=== PATIENT | male | born 1940 | race Caucasian/White ===

== ENCOUNTER → 2018-01-05 | Day surgery (SDC) | payer MEDICARE ==
[2018-01-04 12:38] LABS: BASOPHILS % 0.5 % (0.0-1.0); EOSINOPHILS # (AUTO) 0.3 (0.0-0.4); EOSINOPHILS % 4.4 % (0.0-6.0); HEMATOCRIT 38.7 % (38.2-49.6); HEMOGLOBIN 12.2 g/dL (14.0-18.0); LYMPHOCYTES # (AUTO) 1.7 (1.0-3.2); LYMPHOCYTES % 21.2 % (18.0-39.1); MEAN CORPUSCULAR HEMOGLOBIN 26.2 pg (28-32); MEAN CORPUSCULAR HGB CONC 31.5 g/dL (31-35); MEAN CORPUSCULAR VOLUME 83.2 fL (81-99); MONOCYTES # (AUTO) 0.7 (0.2-0.8); MONOCYTES % 8.7 % (4.4-11.3); NEUTROPHILS # (AUTO) 5.1 (2.1-6.9); NEUTROPHILS % 64.8 % (38.7-80.0); PLATELET COUNT 293 x10e3/uL (140-360); RED BLOOD COUNT 4.65 x10e6/uL (4.3-5.7); RED CELL DISTRIBUTION WIDTH 15.3 % (11.7-14.4)
[2018-01-04 13:05] LABS: ANION GAP 12.3 mmol/L (8-16); CALCIUM 9.5 mg/dL (8.4-10.2); CREATININE, SERUM 1.55 mg/dL (0.72-1.25); POTASSIUM 4.3 mmol/L (3.5-5.1)
--- NOTE | 2018-01-04 13:30 | Diagnostic Imaging Report ---
PROCEDURE:CHEST 2 VIEWS TECHNIQUE:PA and lateral chest INDICATION:Preoperative evaluation COMPARISON:None. FINDINGS: Lungs are clear and symmetrically inflated. No pleural effusions. Large cardiac silhouette with mildly prominent central vasculature. Grossly intact skeleton. CONCLUSION: Cardiomegaly with mild central vascular congestion. Dictated by: Slava Hernandez M.D. on 01/04/2018 at 13:32 Electronically approved by: Slava Hernandez M.D. on 01/04/2018 at 13:32
[~2018-01-05] MED LIST: ATORVASTATIN CA40 MG PO; BUPIVACAINE HCL 0.5% INJ 30 ML VIAL INJ ONE; CEFAZOLIN SOD 2 GM/D5W 50ML 50 ML IV ONE; CLONIDINE HCL0.2 MG PO; DEXAMETHASONE SOD PHOS INJ 4 MG/ML VIAL ONE; ESIDRIX25 MG PO; FENTANYL CITRATE/PF 100MCG/2 ML INJ ONE; GLIPIZIDE XL10 MG PO; INSULIN REGULAR, HUMAN 100 UNIT/1 ML 3ML VIAL ONE; LEVOTHYROXINE100 MCG PO; LIDOCAINE HCL 2% LOCAL INJ 5 ML SDV VIAL INJ ONE; METFORMIN HCL850 MG PO; MIDAZOLAM HCL 2 MG/2 ML VIAL ONE; NEXIUM20 MG PO; ONDANSETRON HCL INJ 2 MG/ML VIAL ONE; PIOGLITAZONE45 MG PO; POTASSIUM CHLO20 ME1 PO; PROPOFOL IV EMULSION 10 MG/ML 20 ML VIAL ONE; SEVOFLURANE INHAL SOLN 250 ML PEN BTL ONE; SODIUM BICARBO650 MG PO
--- OUTSIDE RECORDS SUMMARY | 2018-01-05 07:20 | XMS REPORT ---
Author Author [facility] Address Unknown Phone Unavailable Care Team Providers Care Instructor Of Spanish Name Role Phone ARMEN MARHS Unavailable Unavailable Problems This patient has no known problems. Allergies, Adverse Reactions, Alerts This patient has no known allergies or adverse reactions. Medications This patient has no known medications. Results Test Description Test Time Test Comments Text Results Atomic Results Result Comments CHEST 2 VIEWS [place] [address] Patient Name: MATILDE JAMA MR #: [id number] : 1940 Age/Sex: 77/M Req #: [id number] Adm Physician: Ordered by: ARMEN MARSH MD Report #: [id number] Location: OR Room/Bed: Procedure: [id number] DX/CHEST 2 VIEWS Exam Date: 01/04/18 Exam Time: 1245 REPORT STATUS: Signed PROCEDURE: CHEST 2 VIEWS TECHNIQUE: PA and lateral chest INDICATION: Preoperative evaluation COMPARISON: None. FINDINGS: Lungs are clear and symmetrically inflated. No pleural effusions. Large cardiac silhouette with mildly prominent central vasculature. Grossly intact skeleton. CONCLUSION: Cardiomegaly with mild central vascular congestion. Dictated by: Maximiliano Hernandez M.D. on 01/04/2018 at 13:32 Electronically approved by: Maximiliano Hernandez M.D. on 01/04/2018 at 13:32 Dictated By: MAXIMILIANO HERNANDEZ MD [id number] Transcribed By: LINDA on 01/04/18 133 COPY TO: ARMEN MARSH MD
--- NOTE | 2018-01-07 10:09 | Operative Report ---
DATE OF PROCEDURE: January 05, 2018 PREOPERATIVE DIAGNOSES 1. Left knee medial meniscus tear. 2. Left knee degenerative joint disease of the knee. POSTOPERATIVE DIAGNOSES 1. Left knee medial meniscus tear. 2. Left knee degenerative joint disease of the knee. OPERATIONS/PROCEDURES PERFORMED 1. The patient underwent a left knee examination under anesthesia. 2. Left knee arthroscopy. 3. Left knee partial medial meniscectomy. 4. Left knee chondroplasty of the patella, trochlea, the medial femoral condyle, medial tibial plateau, lateral femoral condyle, lateral tibial plateau. TROPHY ASSEMBLER: None. ANESTHESIA: General endotracheal intubation anesthesia. IV FLUIDS: Per the anesthesia record. BRIEF DESCRIPTION OF THE PATIENT'S OPERATIVE PROCEDURE: Mr. Veliz was taken to the operating room and placed in the supine position on the operating table. Following induction of general anesthesia, as well as endotracheal intubation, the patient's left lower extremity was examined under anesthesia. He was found to have a mild effusion of the knee joint, but an otherwise ligamentously stable knee. The patient's lower extremity was prepped and draped in the standard surgical fashion. A 2-portal technique used to provide this patient arthroscopic evaluation of the knee joint. Examination of the suprapatellar pouch, medial and lateral gutters found no evidence of loose bodies. There was, however, evidence of chondromalacia of the patellar and trochlear surfaces. A scope was advanced to the medial compartment. Examination of the medial compartment demonstrated a torn medial meniscus. There was also evidence of chondromalacia of the medial femoral condyle and medial and tibial plateau. A combination of biting forceps and motorized shaver were used to resect the torn portion of the meniscus. Chondroplasties of the medial femoral condyle and medial tibial plateau were performed at this time. Scope was then advanced into the intercondylar notch and the anterior cruciate ligament was identified and found to be intact. Scope was advanced in the lateral compartment, and chondromalacia of articulating surfaces were encountered. Chondroplasties of the lateral femoral condyle and lateral tibial plateau were performed at this time. Scope was then advanced in the suprapatellar pouch. A chondroplasty of the patella and trochlea was performed. The knee was then deflated of its sterile normal saline. Each of the portal sites were closed using 4-0 nylon suture. Portal sites as well as the knee itself were then injected with 0.5% Marcaine with epinephrine. Sterile dressings were applied. The patient was then awakened and taken to the postanesthesia care unit in stable condition. Job#: [id number] RAUDEL
== END | disposition home or self-care (01) ==
LOC: OR 07:17
PROVIDERS: ATTEND Specialist
DX: S83.222A Peripheral tear of medial meniscus, current injury, left knee, initial encounter (principal); M17.12 Unilateral primary osteoarthritis, left knee; M22.42 Chondromalacia patellae, left knee; E11.22 Type 2 diabetes mellitus with diabetic chronic kidney disease; I12.9 Hypertensive chronic kidney disease with stage 1 through stage 4 chronic kidney disease, or unspecified chronic kidney disease; N18.9 Chronic kidney disease, unspecified; X58.XXXA Exposure to other specified factors, initial encounter; Z01.810 Encounter for preprocedural cardiovascular examination; Z01.812 Encounter for preprocedural laboratory examination; Z01.818 Encounter for other preprocedural examination; Z79.84 Long term (current) use of oral hypoglycemic drugs; Z68.42 Body mass index [BMI] 45.0-49.9, adult
CPT/HCPCS: 29881; 36415 ×2; 71046; 80048; 82948; 85025; 93005; J1100; J2001; J2250; J2405

== ENCOUNTER → 2018-01-27 | Outpatient (RCR) | payer MEDICARE ==
[~2018-01-27] MED LIST changes: -BUPIVACAINE HCL 0.5% INJ 30 ML VIAL INJ ONE; -CEFAZOLIN SOD 2 GM/D5W 50ML 50 ML IV ONE; -DEXAMETHASONE SOD PHOS INJ 4 MG/ML VIAL ONE; -FENTANYL CITRATE/PF 100MCG/2 ML INJ ONE; -INSULIN REGULAR, HUMAN 100 UNIT/1 ML 3ML VIAL ONE; -LIDOCAINE HCL 2% LOCAL INJ 5 ML SDV VIAL INJ ONE; -MIDAZOLAM HCL 2 MG/2 ML VIAL ONE; -ONDANSETRON HCL INJ 2 MG/ML VIAL ONE; -PROPOFOL IV EMULSION 10 MG/ML 20 ML VIAL ONE; -SEVOFLURANE INHAL SOLN 250 ML PEN BTL ONE
== END ==
LOC: PT 01-20 11:53
PROVIDERS: ATTEND Specialist
DX: M17.12 Unilateral primary osteoarthritis, left knee (principal); M25.562 Pain in left knee; M25.662 Stiffness of left knee, not elsewhere classified; R26.2 Difficulty in walking, not elsewhere classified; M62.81 Muscle weakness (generalized)
CPT/HCPCS: 97010; 97110 ×3; 97163; G8978; G8979

== ENCOUNTER 2018-02-14 11:00 | Outpatient (RCR) | payer MEDICARE | END 2018-02-26 | LOC: PT 11:00 | PROVIDERS: ATTEND Specialist | DX: M17.12 Unilateral primary osteoarthritis, left knee (principal); M25.562 Pain in left knee; M25.662 Stiffness of left knee, not elsewhere classified; M62.81 Muscle weakness (generalized); R26.2 Difficulty in walking, not elsewhere classified | CPT/HCPCS: 97010; 97110 ×6; 97139; G8978; G8979 ==

== ENCOUNTER → 2018-03-31 | Day surgery (SDC) | payer MEDICARE ==
[~2018-03-31] MED LIST changes: +CEFOXITIN SOD 1 GM VIAL ONE; +DEXAMETHASONE SOD PHOS INJ 4 MG/ML VIAL ONE; +FENTANYL CITRATE/PF 100MCG/2 ML INJ ONE; +INSULIN REGULAR, HUMAN 100 UNIT/1 ML 3ML VIAL ONE; +LIDOCAINE HCL 2% LOCAL INJ 5 ML SDV VIAL INJ ONE; +MIDAZOLAM HCL 2 MG/2 ML VIAL ONE; +ONDANSETRON HCL INJ 2 MG/ML VIAL ONE; +PROPOFOL IV EMULSION 10 MG/ML 20 ML VIAL ONE; +ROCURONIUM BROMIDE 10 MG/ML 5ML VIAL ONE; +SEVOFLURANE INHAL SOLN 250 ML PEN BTL ONE; +SUCCINYLCHOLINE 200 MG/10 ML SYR ONE
[2018-03-31 12:17] LABS: BASOPHILS # (AUTO) 0.1 (0.0-0.1); BASOPHILS % 0.6 % (0.0-1.0); EOSINOPHILS # (AUTO) 0.3 (0.0-0.4); EOSINOPHILS % 3.4 % (0.0-6.0); HEMATOCRIT 42.3 % (38.2-49.6); HEMOGLOBIN 13.5 g/dL (14.0-18.0); LYMPHOCYTES # (AUTO) 2.1 (1.0-3.2); LYMPHOCYTES % 23.2 % (18.0-39.1); MEAN CORPUSCULAR HEMOGLOBIN 26.2 pg (28-32); MEAN CORPUSCULAR HGB CONC 31.9 g/dL (31-35); MEAN CORPUSCULAR VOLUME 82.1 fL (81-99); MONOCYTES # (AUTO) 0.8 (0.2-0.8); MONOCYTES % 9.2 % (4.4-11.3); NEUTROPHILS # (AUTO) 5.7 (2.1-6.9); PLATELET COUNT 335 x10e3/uL (140-360); RED BLOOD COUNT 5.15 x10e6/uL (4.3-5.7); RED CELL DISTRIBUTION WIDTH 14.2 % (11.7-14.4)
[2018-03-31 12:34] LABS: ANION GAP 16.6 mmol/L (8-16); CALCIUM 9.9 mg/dL (8.4-10.2); CREATININE, SERUM 1.63 mg/dL (0.72-1.25); POTASSIUM 3.6 mmol/L (3.5-5.1)
--- NOTE | 2018-03-31 13:07 | Diagnostic Imaging Report ---
PROCEDURE: X-RAY CHEST, TWO VIEWS COMPARISON: Patients [facility], DX, CHEST 2 VIEWS, 01/04/2018, 12:53. INDICATIONS: PREOPERATIVE CHEST XRAY FOR SCROTUM ABSCESS SURGERY FINDINGS: LUNGS: Well-inflated. Granuloma in the right midlung field measures 6 mm and is stable. Pulmonary veins are prominent and stable.No interstitial thickening. PLEURA: No effusions or pneumothorax. HEART \T\ MEDIASTINUM: Stable mild cardiomegaly and aortic ectasia. BONES \T\ SOFT TISSUES: Stable degenerative changes of the spine. The treated compression deformity of L1 is grossly stable. CONCLUSION: Stable cardiomegaly and pulmonary venous prominence suggestive of pulmonary venous hypertension. No acute cardiopulmonary process. Dictated by: Ramirez Juan M.D. on 03/31/2018 at 13:12 Electronically approved by: Ramirez Juan M.D. on 03/31/2018 at 13:12
--- NOTE | 2018-03-31 14:19 | Operative Report ---
DATE OF PROCEDURE: March 31, 2018 PREOPERATIVE DIAGNOSES 1. Scrotal abscess. 2. Morbid obesity. 3. Diabetes. POSTOPERATIVE DIAGNOSES 1. Scrotal abscess. 2. Morbid obesity. 3. Diabetes. PROCEDURE PERFORMED: Incision and drainage of scrotal abscess. ANESTHESIA: General. ESTIMATED BLOOD LOSS: Minimal. DRAINS: None. COMPLICATIONS: None. INDICATIONS AND FINDINGS: The patient is a 77-year-old male who was referred to us by his primary care physician because he had developed a scrotal abscess. INTRAOPERATIVE FINDINGS: A scrotal abscess located high up in the scrotum near the upper thigh with small amounts of pus. Aerobic and anaerobic cultures were taken. There was no evidence of deep involvement into the scrotal sac and cavity. DESCRIPTION OF PROCEDURE: With the patient lying on the operative table in the supine position after administration of general anesthesia, he was prepped and draped for incision and drainage of abscess of the right upper scrotum. The abscess was about 1.5 to 2 cm and about half a centimeter deep. It did not enter the scrotal cavity. The skin was incised. The superficial cavity was entered. Thick pus was drained. Cultures and sensitivities were taken. The wound was irrigated and then packed with iodoform gauze. One single 3-0 silk stitch was placed to keep the packing in situ. The patient tolerated the procedure well, was taken to the recovery room in stable condition. Job#: [id number] EV
--- NOTE | 2018-03-31 15:18 | Operative Report ---
DATE OF PROCEDURE: March 31, 2018 PREOPERATIVE DIAGNOSES: 1. Status post endoscopic retrograde cholangiopancreatography, common duct stenting and sphincterotomy for choledocholithiasis with ascending cholangitis and sepsis. 2. Cholecystitis secondary to cholelithiasis. 3. Multiple medical comorbidities. POSTOPERATIVE DIAGNOSES: 1. Status post endoscopic retrograde cholangiopancreatography, common duct stenting and sphincterotomy for choledocholithiasis with ascending cholangitis and sepsis. 2. Cholecystitis secondary to cholelithiasis. 3. Multiple medical comorbidities. PROCEDURE PERFORMED: Laparoscopic cholecystectomy with extensive lysis of adhesions in the right upper quadrant and decompression of the gallbladder. ANESTHESIA: General endotracheal. ESTIMATED BLOOD LOSS: Minimal. DRAINS: None. COMPLICATIONS: None. INDICATIONS AND FINDINGS: The patient INCOMPLETE REPORT -- CANCELLED DICTATION Job#: [id number] EV
== END | disposition home or self-care (01) ==
LOC: OR 11:23
PROVIDERS: ATTEND Surgery
DX: N49.2 Inflammatory disorders of scrotum (principal); I10 Essential (primary) hypertension; E11.9 Type 2 diabetes mellitus without complications; Z79.84 Long term (current) use of oral hypoglycemic drugs; E03.9 Hypothyroidism, unspecified; Z01.810 Encounter for preprocedural cardiovascular examination; Z01.812 Encounter for preprocedural laboratory examination; Z01.818 Encounter for other preprocedural examination
CPT/HCPCS: 36415; 55100; 71046; 80048; 82948; 85025; 87071; 87075; 87186; 87205; 93005; J0694; J1100; J2001; J2250; J2405

== ENCOUNTER 2018-06-12 12:33 | Observation (INO) | payer MEDICARE ==
[~2018-06-12] VITALS: Ht 180.3 cm; Wt 158.8 kg
[~2018-06-12 12:33] MED LIST changes: -CEFOXITIN SOD 1 GM VIAL ONE; -DEXAMETHASONE SOD PHOS INJ 4 MG/ML VIAL ONE; -FENTANYL CITRATE/PF 100MCG/2 ML INJ ONE; -INSULIN REGULAR, HUMAN 100 UNIT/1 ML 3ML VIAL ONE; -LIDOCAINE HCL 2% LOCAL INJ 5 ML SDV VIAL INJ ONE; -MIDAZOLAM HCL 2 MG/2 ML VIAL ONE; -ONDANSETRON HCL INJ 2 MG/ML VIAL ONE; -PROPOFOL IV EMULSION 10 MG/ML 20 ML VIAL ONE; -ROCURONIUM BROMIDE 10 MG/ML 5ML VIAL ONE; -SEVOFLURANE INHAL SOLN 250 ML PEN BTL ONE; -SUCCINYLCHOLINE 200 MG/10 ML SYR ONE
[2018-06-12] MEDS ORDERED: ALBUTEROL SULF 0.083% NEB SOLN 3 ML NEB NEB STA (12:49)
[2018-06-12] MEDS ORDERED: ASPIRIN 81 MG CHEW TAB PO ONE ×2 (13:00→17:00)
[2018-06-12 13:24] LABS: BASOPHILS % 0.3 % (0.0-1.0); EOSINOPHILS # (AUTO) 0.2 (0.0-0.4); EOSINOPHILS % 2.4 % (0.0-6.0); HEMATOCRIT 38.6 % (38.2-49.6); HEMOGLOBIN 12.3 g/dL (14.0-18.0); LYMPHOCYTES # (AUTO) 2.4 (1.0-3.2); MEAN CORPUSCULAR HEMOGLOBIN 26.4 pg (28-32); MEAN CORPUSCULAR HGB CONC 31.9 g/dL (31-35); MEAN CORPUSCULAR VOLUME 82.8 fL (81-99); MONOCYTES # (AUTO) 0.8 (0.2-0.8); MONOCYTES % 7.8 % (4.4-11.3); NEUTROPHILS # (AUTO) 6.4 (2.1-6.9); NEUTROPHILS % 65.1 % (38.7-80.0); PLATELET COUNT 303 x10e3/uL (140-360); RED BLOOD COUNT 4.66 x10e6/uL (4.3-5.7); RED CELL DISTRIBUTION WIDTH 14.8 % (11.7-14.4)
[2018-06-12] MEDS ORDERED: IPRATROPIUM BROMIDE 0.02% 2.5 ML NEB NEB ONE (13:30)
[2018-06-12 13:36] LABS: INR 0.9
[2018-06-12 13:37] LABS: PARTIAL THROMBOPLASTIN TIME 28.7 seconds (23.8-35.5)
[2018-06-12 13:49] LABS: ALANINE AMINOTRANSFERASE 19 IU/L (0-55); ALBUMIN 3.2 g/dL (3.5-5.0); ALBUMIN/GLOBULIN RATIO 0.8 (0.8-2.0); ALKALINE PHOSPHATASE 103 IU/L (40-150); ANION GAP 17.7 mmol/L (8-16); BLOOD UREA NITROGEN 29 mg/dL (7-26); BUN/CREATININE RATIO 20 (6-25); CALCIUM 9.6 mg/dL (8.4-10.2); CARBON DIOXIDE 23 mmol/L (22-29); CHLORIDE 101 mmol/L (98-107); CREATINE KINASE 95 IU/L (30-200); CREATININE, SERUM 1.47 mg/dL (0.72-1.25); EST GLOMERULAR FILTRATION RATE 47 ML/MIN (60-); LIPASE 37 U/L (8-78); POTASSIUM 3.7 mmol/L (3.5-5.1); SODIUM 138 mmol/L (136-145)
[2018-06-12 13:54] LABS: GLUCOSE 425 mg/dL (74-118)
--- NOTE | 2018-06-12 14:00 | Diagnostic Imaging Report ---
EXAM: XR CHEST 2 VIEWS DATE: 06/12/2018 12:49 PM INDICATION: Shortness of breath COMPARISON: 03/31/2018, no report available FINDINGS: Lines and Tubes: None Heart and Mediastinum: Heart mildly enlarged. Lungs and Pleura: No pneumothorax. Mild biapical scarring. Minimal basilar opacities poorly evaluated due to underpenetration and body habitus. Bones and Soft Tissues: No acute findings. IMPRESSION: 1. Minimal basilar opacities, poorly evaluated, and not significantly changed from previous study suggesting atelectasis. Developing infectious process not excluded. Signed by: Dr. Cristian Guillen MD on 06/12/2018 1:56 PM
[2018-06-12 14:07] LABS: THYROID STIMULATING HORMONE 2.122 uIU/mL (0.350-4.940)
[2018-06-12] MEDS ORDERED: INSULIN REGULAR, HUMAN 100 UNIT/1 ML 3ML VIAL IV ONE (14:15)
[2018-06-12] MEDS ORDERED: SODIUM CHLORIDE 0.9% 500ML 500 ML IV STA (14:28)
[2018-06-12 14:34] LABS: CLARITY,URINE CLEAR (CLEAR); COLOR,URINE YELLOW (YELLOW); LEUKOCYTE ESTERASE ,URINE NEGATIVE (NEGATIVE)
[2018-06-12 14:35] LABS: BILIRUBIN,URINE NEGATIVE (NEGATIVE); KETONES,URINE NEGATIVE (NEGATIVE); NITRITE,URINE NEGATIVE (NEGATIVE); PROTEIN,URINE DIPSTICK NEGATIVE (NEGATIVE); URINE UROBILINOGEN 0.2 mg/dL (0.2 - 1)
[2018-06-12 14:45] LABS: BACTERIA,URINE RARE /HPF; EPITHELIAL CELLS,URINE RARE /LPF; RBC,URINE 21-50 /HPF (0-5); WBC,URINE (MAN) 0-5 /HPF (0-5)
[2018-06-12] MEDS ORDERED: IOPAMIDOL 370 MG/ML 200 ML INFUS..BTL INJ ONE (15:57)
[2018-06-12] MEDS ORDERED: SODIUM CHLORIDE 0.9% 100 ML 100 ML ONE (15:57)
--- NOTE | 2018-06-12 16:47 | Diagnostic Imaging Report ---
EXAM: CT Chest angiogram WITH contrast INDICATION: Shortness of breath COMPARISON: None. TECHNIQUE: CT chest angiogram scanned utilizing a multidetector helical scanner after administration of IV contrast. Coronal and sagittal reformations were obtained. IV CONTRAST: 100 mL Isovue-370 COMPLICATIONS: None RADIATION DOSE: Total DLP: 649 mGy*cm Estimated effective dose: (DLP x 0.015 x size factor) mSv CTDIvol has been reviewed. It is below the limits set by the Radiation Protocol Committee (RPC). Appropriate CT dose reduction techniques were utilized. FINDINGS: Lines and Tubes: None. Lower Neck: Heterogeneous thyroid with probable nodule on the right. Heart and Great Vessels: The aorta and main pulmonary artery measure 36 and 37 mm. respectively. No central pulmonary embolus. Aberrant right subclavian artery incidentally noted. No pericardial effusion. Lymph Nodes: No suspicious adenopathy. Lungs: Atelectasis lung bases. There is minimal biapical scarring. No pneumothorax or pleural effusion. Trachea and central bronchi are unremarkable. Upper abdomen: Gallstones present with no distinct inflammatory changes. Kidneys partially visualized, atrophic appearing. Bones and Soft Tissues: Degenerative changes spine. Mottled appearance. Vertebroplasty changes. IMPRESSION: 1. No pulmonary embolus. 2. Cholelithiasis. 3. Dilated pulmonary trunk suggesting pulmonary hypertension. 4. Heterogeneous thyroid with probable nodule. Nonemergent ultrasound recommended. Signed by: Dr. Cristian Guillen MD on 06/12/2018 4:43 PM
[2018-06-12] MEDS ORDERED: SODIUM CHLORIDE FLUSH 10 ML SYR INJ PRN (17:00)
[2018-06-12] MEDS ORDERED: DEXTROSE 50% SYRINGE 50 ML IV PRN (17:00)
[2018-06-12] MEDS ORDERED: INSULIN REGULAR, HUMAN 100 UNIT/1 ML 3ML VIAL SQ ONE (17:15)
[2018-06-12] MEDS ORDERED: VANCOMYCIN 1GM/NS 250 ML 250 ML IV SCH (19:30)
[2018-06-12] MEDS: INSULIN REGULAR, HUMAN 100 UNIT/1 ML 3ML VIAL SQ SCH (20:53)
[2018-06-12] MEDS ORDERED: CLINDAMYCIN PHOS 900MG/ 50ML 50 ML IV SCH (22:00)
[2018-06-13] VITALS (7 sets, daily range): BP systolic 87–196; BP diastolic 64–80
[2018-06-13 00:23] LABS: CREATINE KINASE MB 1.2 ng/mL (0-5.0)
[2018-06-13 07:11] LABS: BASOPHILS % 0.4 % (0.0-1.0); EOSINOPHILS # (AUTO) 0.2 (0.0-0.4); EOSINOPHILS % 2.2 % (0.0-6.0); HEMATOCRIT 38.6 % (38.2-49.6); HEMOGLOBIN 12.3 g/dL (14.0-18.0); LYMPHOCYTES # (AUTO) 2.1 (1.0-3.2); LYMPHOCYTES % 20.6 % (18.0-39.1); MEAN CORPUSCULAR HEMOGLOBIN 26.6 pg (28-32); MEAN CORPUSCULAR HGB CONC 31.9 g/dL (31-35); MEAN CORPUSCULAR VOLUME 83.4 fL (81-99); MONOCYTES % 9.7 % (4.4-11.3); NEUTROPHILS # (AUTO) 6.9 (2.1-6.9); NEUTROPHILS % 66.6 % (38.7-80.0); PLATELET COUNT 306 x10e3/uL (140-360); RED BLOOD COUNT 4.63 x10e6/uL (4.3-5.7); RED CELL DISTRIBUTION WIDTH 15.1 % (11.7-14.4)
[2018-06-13 07:23] LABS: ANION GAP 18.4 mmol/L (8-16); CALCIUM 9.9 mg/dL (8.4-10.2); CREATININE, SERUM 1.47 mg/dL (0.72-1.25); POTASSIUM 4.4 mmol/L (3.5-5.1)
[2018-06-13 07:37] LABS: CREATINE KINASE 184 IU/L (30-200)
[2018-06-13] MEDS: INSULIN REGULAR, HUMAN 100 UNIT/1 ML 3ML VIAL SQ SCH ×4 (08:45→21:54)
--- NOTE | 2018-06-13 09:56 | Consultation ---
DATE OF CONSULTATION: June 13, 2018 CARDIAC CONSULTATION REASON FOR CONSULTATION: Shortness of breath. HISTORY: A 77-year-old gentleman, poor historian and is morbidly obesity. He is diabetic of many years duration with end-organ damage, and has peripheral neuropathy. He is hypertensive and hypothyroidism. Patient came to this institution. For the last week, he started having a sore throat and difficulty to breathe. On Wednesday evening, he was not able to lay flat in bed. He does have orthopnea, cough, nonproductive, and severe shortness of breath. He decided to come to the emergency room. He was seen in ER. He had BNP, which was normal, only at 29. His BUN and creatinine were elevated at 29 and 1.47. His blood sugar at 425. His TSH of 2.1. Patient had load of IV Iodine for his CT scan of the chest for PE protocol. This was difficult, but reported showing no PE. His chest x-ray showed atelectatic lung changes. There is cholelithiasis and dilated pulmonary trunk suggestive of pulmonary hypertension. Cardiac consultation is obtained. I visited with the patient who was having his breakfast. He denied having any angina. He does have shortness of breath on minimal activity of many years duration. Orthopnea seems to be new to him. He denied having any recent trouble. He denied having any pleuritic or pericardiac chest pain. Also, he denied anginal chest pain, but he does have easy fatigability and shortness of breath on exertion. REVIEW OF SYSTEMS GENERAL: No fever. No chills. HEENT: "Congested" throat. PULMONARY: As per acute illness. CARDIAC: As per acute illness. GI: No hematemesis. No melena : No hematuria. No dysuria. MUSCULOSKELETAL: Muscular aches and pains in several joints. NEUROMUSCULAR: Severe peripheral neuropathy. ENDOCRINE: Diabetes of many years duration. Other debility and very limited lifestyle because of morbid obesity. SOCIAL HISTORY: He is . He is a nonsmoker [id number]. PAST MEDICAL HISTORY 1. Morbid obesity. 2. Diabetes mellitus with end-organ damage, at least peripheral neuropathy. 3. Hypertension. 4. Pulmonary hypertension evident by computerized tomography scan and his morbid obesity and his symptoms. 5. Past history of arthroscopic left knee surgery. 6. Scrotal abscess, status post surgery. 7. Right inguinal hernia surgery in 1967. FAMILY HISTORY: Father at age 74 with colon cancer. Mother of lung cancer at age 76. Three brothers. He lost a brother from complications of dementia at a young age at the age of 64. Two brothers are healthy. No sisters. Three children, 1 son and 2 daughters. One daughter has hyperthyroidism and she is having weight loss. PHYSICAL EXAMINATION GENERAL: Morbidly obese gentleman. Height of 5 feet 11 inches, weight of greater than 350 pounds. NECK: Short neck. No definite elevation of jugular venous pulsation. CHEST: Decreased lung expansion. HEART: Distant heart sounds. Unable to palpate the apex. ABDOMEN: Morbidly obese. EXTREMITIES: Mild peripheral edema. NEUROLOGIC: "I don't have any feeling in my feet." Otherwise, he is able to move his extremities. LABORATORY DATA: BNP is normal. Sodium of 142, potassium 4.4, BUN 26, creatinine of 1.5. White blood cell count of 10.4, hemoglobin 12.3, hematocrit 39%, and platelet count of 306,000. ALT and AST are normal. EKG with no acute changes. CT scan with evidence of pulmonary hypertension. No pulmonary embolism. Cholelithiasis. IMPRESSION AND PLAN 1. Progressive worsening shortness of breath, multifactorial. 2. Morbid obesity. 3. Pulmonary hypertension. 4. Possibly some element of right-sided heart failure on top of that. 5. Very high probability of coronary artery disease. 6. Documented pulmonary hypertension. 7. Diabetes mellitus with end-organ damage. 8. Peripheral neuropathy. 9. Chronic renal insufficiency. 10. Cholelithiasis. Cardiac malik, my recommendation will be as follows: Observation. Continuation of his antihypertensive. Avoidance of diuresis now and STEPHAN inhibitor because of the patient's baseline creatinine of 1.5, and he had a load of Iodine. Will repeat his labs tomorrow. Management of his diabetes mellitus. Unfortunately, because of his size, we cannot do a stress test or cardiac catheterization. It will be medical therapy for his problem. He is strongly advised to lose weight. Will adjust his medication as deemed necessary during this admission pending on his progress and is labs, etc. Will ask Dr. Watt to see him since he is known to him. His prognosis is guarded mainly because of his morbid obesity, which is affecting several organs. The case discussed with him. Case discussed with his . Job#: [id number] RI
[2018-06-13 10:38] LABS: ABG HCO3 24 mmol/L (23-28); ABG PCO2 36 mmHg (41-51); ABG PH 7.43 (7.31-7.41); ABG PO2 87 mmHg (80-105)
[2018-06-14 01:35] VITALS: BP 158/70
[2018-06-14 06:01] LABS: BASOPHILS % 0.3 % (0.0-1.0); EOSINOPHILS # (AUTO) 0.3 (0.0-0.4); EOSINOPHILS % 3.1 % (0.0-6.0); HEMATOCRIT 38.9 % (38.2-49.6); HEMOGLOBIN 12.2 g/dL (14.0-18.0); LYMPHOCYTES # (AUTO) 1.8 (1.0-3.2); LYMPHOCYTES % 19.9 % (18.0-39.1); MEAN CORPUSCULAR HEMOGLOBIN 26.3 pg (28-32); MEAN CORPUSCULAR HGB CONC 31.4 g/dL (31-35); MONOCYTES # (AUTO) 0.9 (0.2-0.8); MONOCYTES % 9.8 % (4.4-11.3); NEUTROPHILS # (AUTO) 6.1 (2.1-6.9); NEUTROPHILS % 66.5 % (38.7-80.0); PLATELET COUNT 290 x10e3/uL (140-360); RED BLOOD COUNT 4.63 x10e6/uL (4.3-5.7); RED CELL DISTRIBUTION WIDTH 15.1 % (11.7-14.4)
[2018-06-14 06:27] VITALS: BP 162/74
[2018-06-14 06:39] LABS: ALBUMIN 3.1 g/dL (3.5-5.0); ALBUMIN/GLOBULIN RATIO 0.8 (0.8-2.0); ANION GAP 14.4 mmol/L (8-16); CALCIUM 9.8 mg/dL (8.4-10.2); CHOL/HDL RATIO 2.6 (3.9-4.7); CREATININE, SERUM 1.45 mg/dL (0.72-1.25); POTASSIUM 4.4 mmol/L (3.5-5.1)
[2018-06-14 06:47] LABS: THYROID STIMULATING HORMONE 1.403 uIU/mL (0.350-4.940)
[2018-06-14] MEDS: INSULIN REGULAR, HUMAN 100 UNIT/1 ML 3ML VIAL SQ SCH ×3 (07:30→16:30)
[2018-06-14 08:20] VITALS: BP 174/78
[2018-06-14] MEDS ORDERED: AMLODIPINE BESYLATE 5 MG TAB PO SCH (11:45)
[2018-06-14] MEDS ORDERED: METOPROLOL SUCCINATE 25 MG TAB XL PO SCH (12:00)
[2018-06-14 12:42] VITALS: BP 178/84
[2018-06-14] MEDS ORDERED: SOD PHOSPHATE/SOD BIPHOSPHATE ENEMA 132 ML BTL PR ONE (15:15)
[2018-06-14] MEDS ORDERED: AMLODIPINE BESYL5 MG PO (16:27)
[2018-06-14] MEDS ORDERED: METOPROLOL SUCC25 MG PO (16:28)
[2018-06-14] MEDS ORDERED: ENOXAPARIN SOD INJ 60 MG/0.6 ML SYR SC SCH (17:00)
[2018-06-14] MEDS ORDERED: FUROSEMIDE 40 MG TAB PO SCH (17:00)
[2018-06-14 17:53] VITALS: BP 165/72
[2018-06-15] MEDS ORDERED: ASPIRIN 81 MG ENTERIC COATED PO SCH (09:00)
--- NOTE | 2018-08-09 01:52 | Discharge Summary ---
CHIEF COMPLAINT: Dyspnea, hyperglycemia. FINAL DIAGNOSES: 1. Dyspnea upon exertion. 2. Obstructive sleep apnea. 3. Morbid obesity. 4. Diabetes type 2. DISPOSITION: Home. W[age]-old male with known history of GERD, hypothyroidism, diabetes type 2, brought to the ER with a several day history of progressive dyspnea upon exertion along with wheezing. Has no chest pains. No nausea, vomiting nor fever. With further review and evaluation in the emergency room, chest was demonstrating inspiratory crackles, abdomen soft and obese, lower extremities were showing 2+ pitting edema; and with further monitoring, the patient was admitted for care due to findings of progressive shortness of breath, dyspnea upon exertion, COPD, uncontrolled diabetes type 2, rule out cardiac ischemia. Will be monitoring cardiac enzymes. Will request a cardiology follow. With his admission to the med floor, he was continued on ADA diet. He was undergoing review by Dr. Watt, hematology. He was receiving his routine regular insulin. His laboratory studies were showing stable electrolytes. Kidney functions, BUN 26, creatinine 1.47, glucose 218. CBC: Hemoglobin of 12.3 with a white cell count of 10,000. Dr. Watt findings are morbid obesity, anemia of chronic disease, probable sleep apnea. As he continued, his hemoglobin was remaining in the low 12s, followup blood sugars 242. Tolerating the ADA diet. A cardiac review was revealing evidence of morbid obesity, diabetes, chronic renal insufficiency, hypertension, sleep apnea. Recommend adding Lasix, beta blockers. Request Doppler, lower extremities. Further care was showing issues of continuing shortness of breath, postural nocturnal dyspnea, positive orthopnea. Patient reached his potential recovery. He was stabilized. He was able to be discharged home on June 14, 2018 in guarded condition. EKGs are showing sinus rhythm with premature atrial complexes, incomplete right bundle-branch block, inferior infarct age undetermined. Echocardiogram was showing findings of ejection fraction of 38%. He was able to be discharged home as mentioned. Continue on a diabetic cardiac diet. No equipment or supplies are necessary. No drains or Muro are needed. Activity level as directed by me as well as by cardiology along with Dr. Watt. He will be following back up with Dr. Watt regarding his anemia of chronic history, following up with cardiology as directed by Dr. Giron. He was given a prescription for amlodipine 5 mg 1 tablet p.o. daily, metoprolol succinate 12.5 mg 1 tablet p.o. daily. Continue on atorvastatin 40 mg daily, clonidine 0.2 mg daily, Nexium 20 mg daily, glipizide 10 mg twice a day, Esidrix 25 mg daily, levothyroxine sodium 100 mcg daily, pioglitazone 45 mg daily, potassium chloride 20 mEq every other day, sodium bicarb 650 twice a day. If the patient develops recurrence of symptoms, he will be contacting his PCP or reporting back to the emergency room. Dictated By: FERNIE Chavez Job#: [id number]
== END 2018-06-14 17:10 | disposition home or self-care (01) ==
LOC: ER 12:33 → ERHOLD 16:57 → INTOOBSV 16:57 → MED/SURG2 06-13 17:17
DX: R06.02 Shortness of breath (principal); E66.01 Morbid (severe) obesity due to excess calories; Z68.42 Body mass index [BMI] 45.0-49.9, adult; I27.20 Pulmonary hypertension, unspecified; E11.42 Type 2 diabetes mellitus with diabetic polyneuropathy; Z79.84 Long term (current) use of oral hypoglycemic drugs; E11.65 Type 2 diabetes mellitus with hyperglycemia; E11.22 Type 2 diabetes mellitus with diabetic chronic kidney disease; I12.9 Hypertensive chronic kidney disease with stage 1 through stage 4 chronic kidney disease, or unspecified chronic kidney disease; N18.9 Chronic kidney disease, unspecified; K21.9 Gastro-esophageal reflux disease without esophagitis; E03.9 Hypothyroidism, unspecified; K80.20 Calculus of gallbladder without cholecystitis without obstruction; R53.81 Other malaise
CPT/HCPCS: 36415 ×3; 71046; 71260; 80048; 80053 ×2; 80061; 81001; 82550 ×2; 82553 ×2; 82805; 82948 ×3; 83690; 83880; 84443 ×2; 84484 ×2; 85025 ×3; 85610; 85730; 87086; 87186; 87400; 93005 ×2; 93306; 94640 ×2; 96372; 99284; G0378 ×3; J7040; Q9967; 36600

== ENCOUNTER → 2018-07-06 | Outpatient (CLI) | payer MEDICARE ==
[~2018-07-06] MED LIST changes: +ALLOPURINOL300 MG PO; +AMLODIPINE BESYL5 MG PO; +ELIQUIS PO; +FUROSEMIDE40 MG PO; +HUMALOG MI100 UNITS/ SQ; +METOPROLOL SUCC25 MG PO; +METOPROLOL TART50 MG PO; +TRAZODONE HCL50 MG PO
== END ==
LOC: RESP 11:15
PROVIDERS: ATTEND Internal Medicine Critical Care Medicine
DX: I27.20 Pulmonary hypertension, unspecified (principal); J40 Bronchitis, not specified as acute or chronic; J32.9 Chronic sinusitis, unspecified; M40.209 Unspecified kyphosis, site unspecified; G47.33 Obstructive sleep apnea (adult) (pediatric); E66.2 Morbid (severe) obesity with alveolar hypoventilation
CPT/HCPCS: 94010

== ENCOUNTER 2018-08-30 13:05 | Inpatient (IN) | payer MEDICARE ==
[~2018-08-30] VITALS: Ht 180.3 cm; Wt 147.9 kg
[~2018-08-30 13:05] MED LIST changes: -ALLOPURINOL300 MG PO; -ELIQUIS PO; -FUROSEMIDE40 MG PO; -HUMALOG MI100 UNITS/ SQ; -METOPROLOL TART50 MG PO; -TRAZODONE HCL50 MG PO
[2018-08-30] MEDS ORDERED: COLCHICINE 0.6 MG TAB PO ONE (13:45)
--- NOTE | 2018-08-30 15:09 | Diagnostic Imaging Report ---
Exam: Right ankle radiograph - 3 views Comparison: None. Findings: No evidence of acute fracture or malalignment. The ankle mortise is preserved. There is soft tissue edema in medial ankle. There is a plantar calcaneal spur. Impression: Medial ankle soft tissue edema without evidence of fracture or malalignment. Signed by: Dr. Delia Ramirez MD on 08/30/2018 3:06 PM
[2018-08-30 15:15] LABS: BASOPHILS # (AUTO) 0.1 (0.0-0.1); BASOPHILS % 0.3 % (0.0-1.0); EOSINOPHILS % 0.1 % (0.0-6.0); HEMOGLOBIN 13.4 g/dL (14.0-18.0); LYMPHOCYTES # (AUTO) 1.7 (1.0-3.2); LYMPHOCYTES % 11.6 % (18.0-39.1); MEAN CORPUSCULAR HEMOGLOBIN 25.3 pg (28-32); MEAN CORPUSCULAR HGB CONC 31.2 g/dL (31-35); MEAN CORPUSCULAR VOLUME 81.1 fL (81-99); MONOCYTES # (AUTO) 1.1 (0.2-0.8); MONOCYTES % 7.3 % (4.4-11.3); NEUTROPHILS # (AUTO) 11.6 (2.1-6.9); NEUTROPHILS % 80.4 % (38.7-80.0); PLATELET COUNT 388 x10e3/uL (140-360); RED CELL DISTRIBUTION WIDTH 14.5 % (11.7-14.4)
[2018-08-30 15:22] LABS: INR 1.25; PROTHROMBIN TIME 16.8 seconds (11.9-14.5)
[2018-08-30 15:23] LABS: PARTIAL THROMBOPLASTIN TIME 37.3 seconds (23.8-35.5)
[2018-08-30 15:30] LABS: ALBUMIN 3.5 g/dL (3.5-5.0); ALBUMIN/GLOBULIN RATIO 0.7 (0.8-2.0); ANION GAP 19.9 mmol/L (8-16); CALCIUM 10.4 mg/dL (8.4-10.2); CREATININE, SERUM 2.6 mg/dL (0.72-1.25)
[2018-08-30 15:35] LABS: POTASSIUM 2.9 mmol/L (3.5-5.1)
[2018-08-30] MEDS ORDERED: FUROSEMIDE40 MG PO (16:41)
[2018-08-30] MEDS ORDERED: ELIQUIS PO (16:41)
[2018-08-30] MEDS ORDERED: MORPHINE SULFATE 2 MG/ML SYR 1ML IV PRN (18:15)
[2018-08-30] MEDS ORDERED: DEXTROSE 50% SYRINGE 50 ML IV PRN (18:15)
[2018-08-30] MEDS ORDERED: ONDANSETRON HCL INJ 2MG/ML 2ML 2 MG/ML VIAL IV PRN (18:15)
--- NOTE | 2018-08-30 18:40 | NUR ---
PT AND MADE AWARE OF ADMIT ORDERS, AND PENDING ROOM ASSIGNMENT
--- NOTE | 2018-08-30 19:27 | NUR ---
WALKING ROUNDS AND REPORT GIVEN TO PETER ROMERO [employer] NURSE
--- NOTE | 2018-08-30 19:32 | NUR ---
SPOKE TO DR HOLDEN REGARDING NOT BEING ABLE TO REACH DR SYED, DR HOLEDN STATED TO KEEP ON ATTEMPTING TO CALL WHEN ON THE FLOOR
--- NOTE | 2018-08-30 19:40 | NUR ---
DORIAN GREEN INSTRUCTED TO CONTINUE TO CALL DR GOLDBERG'S OFFICE UNTIL WE GET A HOLD OF DR GOLDBERG
--- NOTE | 2018-08-30 19:49 | NUR ---
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 FLOOR INFORMED OF NEED TO GET A HOLD OF DR SYED SINCE HE IS HIS PRIMARY PROVIDER.
[2018-08-30 20:00] VITALS: BP 136/62
[2018-08-30] MEDS: POTASSIUM CHLORIDE 20 MEQ TAB CR PO SCH (20:29)
[2018-08-30] MEDS: SODIUM CHLORIDE 0.9% 1000ML 1,000 ML IV SCH (20:29)
[2018-08-30] MEDS: INSULIN REGULAR, HUMAN 100 UNIT/1 ML 3ML VIAL SQ SCH (20:34)
--- NOTE | 2018-08-30 21:05 | NUR ---
patient came from ER awake alert oriented, complained of right ankle pain, redness and swelling. noted right toes 1st, 2nd and 3 rd digits are swelling and some blisters noted. also right inner ankle redness and blackish in the middle noted. patient denied any pain at this time, but noted he he has difficulty walking with the cane he has.
[2018-08-30 21:24] VITALS: BP 136/62
[2018-08-30] MEDS: CLINDAMYCIN PHOS 900MG/ 50ML 50 ML IV SCH (21:24)
--- NOTE | 2018-08-30 22:53 | NUR ---
called answering service of dr CLIFFORD Dang (covering for dr Shukri Burton), letting know that patient is been admitted to observation units. expecting call back or/and if any orders. awaiting for call back.
--- NOTE | 2018-08-30 22:58 | NUR ---
dr Lorenzo Dang called back, made her aware that dr Watt's patient is admitted to observation room 178, and let her know his status at this time, no orders so far.
[2018-08-31] VITALS (9 sets, daily range): BP systolic 104–134; BP diastolic 53–62
[2018-08-31 05:28] LABS: BASOPHILS % 0.2 % (0.0-1.0); EOSINOPHILS % 0.2 % (0.0-6.0); HEMATOCRIT 37.6 % (38.2-49.6); HEMOGLOBIN 12.1 g/dL (14.0-18.0); LYMPHOCYTES # (AUTO) 1.8 (1.0-3.2); LYMPHOCYTES % 13.4 % (18.0-39.1); MEAN CORPUSCULAR HEMOGLOBIN 25.9 pg (28-32); MEAN CORPUSCULAR HGB CONC 32.2 g/dL (31-35); MEAN CORPUSCULAR VOLUME 80.5 fL (81-99); MONOCYTES # (AUTO) 1.7 (0.2-0.8); MONOCYTES % 12.2 % (4.4-11.3); NEUTROPHILS # (AUTO) 10.1 (2.1-6.9); NEUTROPHILS % 73.4 % (38.7-80.0); PLATELET COUNT 369 x10e3/uL (140-360); RED BLOOD COUNT 4.67 x10e6/uL (4.3-5.7); RED CELL DISTRIBUTION WIDTH 14.5 % (11.7-14.4)
[2018-08-31] MEDS: CLINDAMYCIN PHOS 900MG/ 50ML 50 ML IV SCH ×3 (05:31→21:07)
--- NOTE | 2018-08-31 06:16 | NUR ---
patient stated he bumped his left great toe at home, and the nail came off, he treated it by him self at home, noted left great toe red and only a part of the nail left intact.
--- NOTE | 2018-08-31 07:00 | NUR ---
Walking rounds done and report taken from night. Call brewer within reach.
[2018-08-31 07:05] LABS: ANION GAP 16.7 mmol/L (8-16); CALCIUM 9.5 mg/dL (8.4-10.2); CREATININE, SERUM 2.11 mg/dL (0.72-1.25)
[2018-08-31] MEDS ORDERED: MORPHINE SULFATE INJ 4 MG/ML INJ 1ML IV PRN (07:15)
[2018-08-31 07:22] LABS: POTASSIUM 2.7 mmol/L (3.5-5.1)
[2018-08-31] MEDS: SODIUM CHLORIDE 0.9% 1000ML 1,000 ML IV SCH ×2 (07:27→19:44)
[2018-08-31] MEDS: INSULIN REGULAR, HUMAN 100 UNIT/1 ML 3ML VIAL SQ SCH ×3 (07:30→16:30)
[2018-08-31 07:53] LABS: ANISOCYTOSIS SLIGHT; HYPOCHROMASIA SLIGHT; PLATELET ESTIMATE ADEQUATE; RBC MORPHOLOGY COMMENT NORMAL
[2018-08-31 07:54] LABS: PLATELET MORPHOLOGY COMMENT FEW LARGE
[2018-08-31] MEDS: POTASSIUM CHLORIDE 20 MEQ TAB CR PO SCH (08:36)
[2018-08-31] MEDS ORDERED: POTASSIUM CHLORIDE 20 MEQ TAB CR PO SCH (09:00)
[2018-08-31] MEDS ORDERED: COLCHICINE 0.6 MG TAB PO SCH (09:00)
--- NOTE | 2018-08-31 09:25 | NUR ---
Dr. Watt in room making rounds. He discussed at length POC and all questions answered at this time by .
[2018-08-31] MEDS ORDERED: TRAZODONE HCL50 MG PO (09:52)
[2018-08-31] MEDS ORDERED: METOPROLOL TART50 MG PO (09:52)
[2018-08-31] MEDS ORDERED: PIOGLITAZONE HCL 45 MG TAB PO SCH (10:45)
--- NOTE | 2018-08-31 11:14 | NUR ---
SOCIAL WORK INITIAL ASSESSMENT Overhead Crane Operator to bedside to discuss plan of care with patient/family. CM/SW role and care transitions discussed. Anticipated discharge plan discussed along with duration of care. CM/SW discussed patients right to make decisions in care. CM/SW work hours given. Patient lives: IN HOUSE WITH FAMILY Admit/Transfer: VIA HOME POA/Emergency contact: PEARL NEWMAN [phone] Current/Previous Home Health: NONE PCP/Follow-up Care: BRITTANY Current/Previous DME: [facility] Other Services: NONE Employment Status: RETIRED Areas of Concerns: NONE Referral Needs: NONE Education Needs: NONE IMM/VERA given and signed (if applicable): VERA Goal for discharge: RETURN HOME INDEPENDENTLY CM/SW left business card at the bedside with contact information. Name and number was also written on the patients whiteboard. Patient verbalized understanding of discussion. CM will follow-up with ongoing discharge and transition of care needs.
[2018-08-31] MEDS: FUROSEMIDE 40 MG TAB PO SCH (11:30)
[2018-08-31] MEDS: APIXABAN 5 MG TABLET PO SCH ×2 (12:00→16:59)
--- NOTE | 2018-08-31 13:11 | Consultation ---
DATE OF CONSULTATION: August 31, 2018 PULMONARY MEDICINE CONSULT REFERRING PHYSICIAN: Dr. Watt. REASON FOR CONSULTATION: Shortness of breath. HISTORY: Mr. Shelley is a pleasant 77-year-old gentleman with shortness of breath. Patient known to me from previous encounters with some shortness of breath as well as other medical problems. Patient was hospitalized on August 30, 2018. Patient was having right lower leg and ankle redness. Onset for 3 to 4 days. It was progressively getting worse; therefore, he came to the hospital. In the hospital there was seen to be a significant cellulitis; therefore, he was admitted. White blood cell count was 14,000 coming in. He is known to have kidney ailments. His creatinine was 2.6 on admit with uric acid 15.7. Patient did have recent hospitalizations demonstrating atrial fibrillation. He tells me heart rate went to 190 beats per minute when he was hospitalized. Patient was known to have risk factors for conditions such as obstructive sleep apnea, but as of now he has deferred evaluation. July 06, 2018, pulmonary function tests demonstrate FEV1 of 2.23 liters or 68% predicted and FVC of 2.50 liters or 55% predicted in setting of normal FEV1 or FVC ratio. Patient also had CT chest done actually by another physician when he came to the emergency room on an occasion, demonstrating borderline bronchiectasis, pulmonary artery diameter of 40 mm compared to 37 mm aortic diameter. PAST MEDICAL HISTORY: Morbid obesity, diabetes, peripheral neuropathy, hypertension, pulmonary hypertension evidenced by CT chest diameter of pulmonary artery, arthroscopic left knee surgery, right inguinal hernia surgery in 1967, scrotal abscess and surgery, atrial fibrillation reported. ALLERGIES: NO KNOWN DRUG ALLERGIES. SOCIAL HISTORY: No smoking, no drinking, no drugs. Great supportive structure and he is . FAMILY HISTORY: Noncontributory. REVIEW OF SYSTEMS GENERALLY: No weight loss. OPHTHALMOLOGIC: No double vision. ENT: No ulcers in mouth. ENDOCRINE: No thyroid disease. PULMONARY: No asthma. CARDIAC: No recent heart attacks. GASTROINTESTINAL: No constipation. GENITOURINARY: No blood in the urine. MUSCULOSKELETAL: There is mild arthritis. DERMATOLOGIC: There are minimal stasis changes to the legs. INTEGUMENT: Mild problems with distal feet, diabetes-related. PHYSICAL EXAMINATION VITAL SIGNS: Afebrile, vital signs noted per electronic record. GENERAL: In no acute distress, alert and calm. HEENT: Normocephalic, atraumatic. NECK: Supple. Throat midline. LUNGS: Bilateral air entry, rare rhonchi, mostly clear. CARDIOVASCULAR: S1 and S2. No murmurs, rubs or gallops. ABDOMINAL: Soft, nontender. EXTREMITIES: No clubbing, no cyanosis. There is 2+ edema to the right leg, trace edema to the left leg. INTEGUMENT: No rash, no purpura. Right ankle area and distal leg are red and with mild pain. LABS: Labs reviewed per the electronic record. IMPRESSION AND PLAN 1. Significant obesity. 2. Suspected obstructive sleep apnea. 3. Pulmonary function testing moderate restrictive lung disease, likely early obesity-hypoventilation. 4. History of atrial fibrillation with rapid rate. 5. Clinical pulmonary hypertension suspected. 6. Diabetes, uncontrolled. 7. Hypertension. 8. Chronic kidney disease. 9. Admit with cellulitis and hypokalemia. I agree with to treat the right leg primarily. After sepsis has diminished, IV fluids can be cut off or decreased and patient can have low levels of diuretics. Kidney function and electrolytes can be followed. Patient does finally agree for outpatient sleep study, which I will order. Thank you very much, Dr. Watt, for allowing me the chance to participate in the care of Mr. shelley. Do not hesitate to contact me if I could help in any way. Job#: [id number] RETA
[2018-08-31 14:37] LABS: FREE T4 (FREE THYROXINE) 1.22 ng/dL (0.9-1.8); THYROID STIMULATING HORMONE 1.738 uIU/mL (0.350-4.940)
[2018-08-31] MEDS ORDERED: POTASSIUM CHLORIDE 20MEQ/100ML 200 ML IV ONE (15:15)
[2018-08-31 15:54] LABS: TOTAL PROTEIN, URINE < 6.8 mg/dL (1-14)
--- NOTE | 2018-08-31 16:04 | Consultation ---
DATE OF CONSULTATION: August 31, 2018 CARDIAC CONSULTATION REASON FOR CONSULTATION: Leg edema, shortness of breath, easy fatigability, history of atrial fibrillation. HISTORY: This is a 77-year-old gentleman, very poor historian. He is known with morbid obesity, diabetes mellitus of many years duration with end-organ damage, including chronic renal insufficiency, peripheral neuropathy. In addition to that, he is hypertensive and hypothyroidism. Patient was at [facility] where at that time presented there for shortness of breath, etc. Diagnosed with atrial fibrillation and started on Eliquis in addition to his medications. Patient in his usual status of health is having swelling of the lower extremity, but he noted redness and progressive fever and hotness of the right lower extremity. He came to this institution. Diagnosed with cellulitis of the right lower extremity. The patient is also known to have pulmonary hypertension and history of cholelithiasis. Patient admitted with worsening condition and cellulitis of the right lower extremity. He does have shortness of breath and on several medications. Cardiac consultation is obtained. Patient seen and evaluated. His cardiac symptoms are easy fatigability, shortness of breath on exertion on minimal activity, orthopnea, swelling of the lower extremity, cellulitis like symptoms for the last few days prior to admission of the right lower extremity. He does have also symptoms to suggest sleep apnea in addition to snoring, cough, cough, etc. There is no pleuritic and no pericarditic chest pain. No anginal chest pain. REVIEW OF SYSTEMS: Was extensive to all 12 systems. Only will be summarized for clarity. GENERAL: Subjective fever. Chills. HEENT: Congested throat. PULMONARY: As described above. CARDIAC: As described above. GI: No hematemesis. No melena. : No hematuria. No dysuria. MUSCULOSKELETAL: Back pain, knee pain and pain in several joints. NEUROMUSCULAR: Severe peripheral neuropathy symptoms. Gait is balanced. No tendency to fall. Limited activity. ENDOCRINE: Diabetes mellitus. HEMATOLOGY: No bruising. No bleeding. LOWER EXTREMITIES: Chronic swelling of the lower extremity with worsening swelling and redness of the right leg starting from the ankle all the way up. Others: Limited activity. Debility and morbid obesity. SOCIAL HISTORY: He is . He is a nonsmoker and non-alcohol drinker. PAST MEDICAL HISTORY 1. Atrial fibrillation, on Eliquis. Diagnosed during admission to [facility] a few weeks back. 2. Morbid obesity. 3. Diabetes mellitus, severe end-organ damage. 4. Peripheral neuropathy. 5. Chronic renal insufficiency. 6. Pulmonary hypertension evident by his CT scan and his clinical finding. 7. Right-sided heart failure with chronic swelling of the lower extremities, possibly also contributing factor is protein urea. 8. Scrotal abscess, status post surgery. 9. Right inguinal hernia surgery. FAMILY HISTORY: Father of colon cancer at age 74. Mother of lung cancer at age 76. He lost a brother to complications of dementia at a young age at age 64. His other 2 brothers are healthy. No sisters. Three children, 1 son and 2 daughters. One daughter with hypertension. PHYSICAL EXAMINATION VITALS: Height of 5 feet 11 inches, weight of 308 pounds, although he looks more than that. He looks 158 pounds. NECK: Short neck. No elevation of jugular venous pulsation. CHEST: Decreased lung expansion. Decreased air entry. HEART: Unable to palpate the apex. Distant heart sounds. ABDOMEN: Morbid obesity. EXTREMITIES: Bilateral edema on the right. There is skin lesion on the right leg about the medial malleolus. There is evidence of cellulitis involving the foot and all the way to half of the foreleg with redness and skin changes. NEUROLOGIC: Severe peripheral neuropathy, which is well known to the patient. He is able to move his extremities. LAB DATA: BUN of 50, creatinine of 2.11, sodium of 136, potassium of 2.7. White blood cell count of 13.7, hemoglobin 12.1, hematocrit 37%, and platelet count of 369,000. X-ray of the foot showed marked edema. Chest x-ray not done. CURRENT MEDICATIONS 1. Metoprolol 50 mg twice a day. 2. Eliquis 5 mg twice a day. 3. Clonidine 0.2 mg daily. 4. Lasix 40 mg p.o. daily. 5. Levothyroxine 100 mcg a day. 6. Atorvastatin 40 mg at bedtime. 7. Potassium chloride supplement. 8. Colchicine 0.6 mg twice a day. 9. Clindamycin. 10. Protonix. 11. Trazodone. 12. Insulin sliding scale. ALLERGIES: NONE. IMPRESSION AND PLAN 1. Cellulitis of the right lower extremity. 2. Morbid obesity. 3. History of atrial fibrillation, on Eliquis, recently diagnosed. 4. Pulmonary hypertension and right-sided heart failure. 5. Most likely CO2 retention. 6. Diabetes mellitus with end-organ damage. 7. Chronic renal insufficiency. 8. Peripheral neuropathy. 9. Cholelithiasis. 10. Very high probability of coronary artery disease. Cardiac malik, recommendation will be to continue current medication of beta blockers, Eliquis, Lasix, and statin. Avoiding STEPHAN inhibitors. Observing renal function carefully. Antibiotic treatment for his presentation. Pending on his course, further steps to be done. Job#: [id number] RAUDEL
--- NOTE | 2018-08-31 16:09 | NUR ---
CALL TO DR BAUTISTA'S OFFICE REGARDING OBS VS INPT STATUS. OFFICE GAVE THE CELL #. CALL WAS PLACED TO DR. SYED. NO ANSWER; VM. LEFT VM W CONTACT INFO. WILL AWAIT CALL BACK.
[2018-08-31] MEDS: POTASSIUM CHLORIDE 20MEQ/100ML 100 ML IV SCH ×2 (16:13→18:17)
[2018-08-31] MEDS: INSULIN LISPRO 100 UNIT/1 ML 3ML VIAL SQ SCH ×3 (16:30→20:04)
[2018-08-31] MEDS: METOPROLOL TARTRATE 50 MG TAB PO SCH (16:54)
[2018-08-31] MEDS ORDERED: APIXABAN 5 MG TABLET PO SCH (17:00)
--- NOTE | 2018-08-31 17:03 | Consultation ---
DATE OF CONSULTATION: August 31, 2018 REASON FOR CONSULTATION: Acute kidney injury. Prior history of chronic kidney disease. HISTORY OF PRESENT ILLNESS: This 77-year-old gentleman has underlying history of type-2 diabetes, hypothyroidism, hypertension with diabetic kidney disease, stage 3. He presented with cellulitis of right lower extremity. Has diabetes, type 2, with end-organ damage, with retinopathy, nephropathy, neuropathy, peripheral vascular disease. Denies shortness of breath, nausea or vomiting. Laboratory tests show a potassium level of 2.7, bicarb 24, creatinine 2.11. Hemoglobin 12.1. ALLERGIES: NO APPARENT DRUG ALLERGIES. CURRENT MEDICATIONS 1. Morphine p.r.n. 2. Trazodone 50 mg at bedtime. 3. Pantoprazole 20 mg at bedtime. 4. Insulin. 5. Clonidine 0.2 mg daily. 6. Levothyroxine 100 mcg daily. 7. Insulin detemir 16 units at bedtime. 8. Colchicine 0.6 mg b.i.d. 9. Ondansetron. 10. Furosemide 40 mg b.i.d. 11. Atorvastatin. 12. Insulin. 13. Potassium chloride on a daily basis. 14. Apixaban. 15. Metoprolol 50 mg p.o. b.i.d. SOCIAL HISTORY: Patient is . Does not smoke or drink. FAMILY HISTORY: Significant for hypertension and diabetes. PHYSICAL EXAMINATION GENERAL: Awake, alert gentleman with increased BMI of 42.9. VITALS: Blood pressure is 119/56, pulse rate 93, afebrile, oxygen saturation 98% on room air. HEAD AND NECK: Corneas clear. Oral mucosa dry. Neck veins flat. LUNGS: Relatively clear. HEART: S1 and S2 audible. ABDOMEN: Otherwise, soft and nontender. EXTREMITIES: Lower extremities show chronic skin changes. Some redness noted over the ankle area, right lower extremity. Tenderness noted on touching. He already has neuropathy to begin with. IMPRESSION AND PLAN 1. Profound hypokalemia. 2. Underlying [id number] kidney failure. 3. Diabetic nephropathy, stage 3, made worse. Plan on replacing potassium IV. Medication changes made. Will check uric acid level. Discontinue colchicine given the advanced kidney failure. Obtain clinic records. Currently receiving clindamycin. Will continue with Lasix but hold off on daily potassium tablets. Please see orders. Job#: [id number] MH
--- NOTE | 2018-08-31 17:04 | Consultation ---
DATE OF CONSULTATION: August 31, 2018 ENDOCRINE CONSULTATION This is a patient of Dr. Watt. Thank you very much for referring this patient. HISTORY OF PRESENT ILLNESS: This is a 77-year-old white gentleman who is referred to me for evaluation of uncontrolled diabetes mellitus. Patient came to the hospital with history of swelling and redness of the right leg as well as right ankle which is getting progressively worse. Patient is a known diabetic for almost 15 years and takes a combination of pioglitazone and 70/30 insulin twice a day. His blood sugars have been significantly elevated during the hospital stay. Patient also has history of longstanding hypertension, atrial fibrillation with varying ventricular rate, hypothyroidism for which he is on Synthroid 0.1 mg once daily. He also has chronic renal insufficiency and is on multiple antihypertensive medications including clonidine 0.2 mg once daily, metoprolol. PHYSICAL EXAMINATION: GENERAL: Today the patient is alert, awake, a little bit apprehensive. He is morbidly obese. VITAL SIGNS: His heart rate is around 78. Blood pressure 146/86 mmHg. HEENT: Examination essentially unremarkable. Thyroid is palpable. Clinically he is near euthyroid. CHEST: Bilateral vesicular breathing. He has bilateral bronchospasm. CARDIAC: Both 1st and 2nd sounds. There is no 3rd or 4th heart sound. Ejection sound grade 2/6. EXTREMITIES: Patient has evidence of diabetic sensory neuropathy in both lower extremities. He has cellulitis of the right ankle, possible gouty arthritis. He has evidence of diabetic sensory neuropathy in both lower extremities. His BUN and creatinine are elevated at 50 and 2.15. Blood sugars have been in the ranges of 250 to 300. CLINICAL IMPRESSION: 1. Diabetes mellitus type 2, uncontrolled with complications. 2. Cellulitis, possible gouty arthritis of the right ankle. 3. Hypertension. Hyperlipidemia. 4. Obstructive pulmonary disease. 5. Chronic atrial fibrillation. 6. Acute on chronic renal failure. The plan at this time is to discontinue the pioglitazone, put him on the Levemir and the Humalog combination. Monitor his blood sugars closely. Will also do a hemoglobin A1c and thyroid function test. Thanks for referring this patient. I will be following this patient with you. Job#: [id number] EV
--- NOTE | 2018-08-31 17:17 | NUR ---
Nutrition Screen Note RD Recommendation for Physician: -Rec adding cardiac to ADA diet as medically appropriate Plan of Care: RD following, monitoring for tolerance and adequacy Nutrition reason for involvement: MD Consult No reason stated Primary Diagnose(s): 1. Diabetes mellitus type 2, uncontrolled with complications. 2. Cellulitis, possible gouty arthritis of the right ankle. PMH: type-2 diabetes, hypothyroidism, hypertension with diabetic kidney disease, stage 3 Ht: 71in Wt: 308.31lb BMI: 43kg/m2 IBW: 172lb RD Assessment: (08/31) Chart reviewed. Labs and meds reviewed. 77yo morbidly obese M, who is admitted for SOB. Visited pt in the room. Pt reports good appetite with >50% meal intake. Pt complains of some constipation; notified RN Romana. No other GI complains noted. Pt denies any chewing or swallowing difficulty. Pt reports of intentional weight loss with diet at home. Will continue to monitor and follow. Current Diet: ADA diet Malnutrition Evaluation (08/31) The patient does not meet criteria for a specified degree of malnutrition at this time. Will re-evaluate at follow-up as appropriate. Diet Education Needs Assessment: Diet education indicated, pt is not interested. Nutrition Care Level: low Signed: Krissy Ventura, MS, RD, LD
--- NOTE | 2018-08-31 17:40 | NUR ---
WOUND CARE CONSULTATION - Initial Evaluation and Recommendation Patient is a 77 year-old male admitted from home with cellulitis of right ankle. He has a history of Diabetes type2, No known allergies noted and patient is on a diabetic diet. Patient complains of pain upon weight bearing to right ankle and has a walker at bedside to assist for ambulation. Verbalizes understanding of safety and awaiting for staff to assist him to restroom. Offered bed side commode but refuses at this time. Patient aware one can be available upon request. Left hallux presents with old injury from "stubbing" his foot and losing a part of the nail. Area appears stable, without redness, no swelling and denies discomfort. Right ankle has a pronounced area of (11x9x0 cm) erythema that is warmer to touch than the left ankle. Pedal pulses present bilaterally and capillary refill is less than 1 second at bilateral toes. No blistering noted at toes. Noted old scabs at 1st-3rd toes to right foot and appear stable. No open wounds identified. Noted dry skin to bilateral lower extremities. Family member at bedside states patient has creams available at home to help with dryness but refuses/ forgets to use them. Patient is on IV ABX. LABS: WBC13.24 RBC4.67 HGB12.1 HCT37.6 Neut%73.4 Obivzlz547 Alb3.5 RECOMMENDATION: Conservative. 1. BLE - Wash with soap and water and dry thoroughly. Apply Vitamin A&D ointment to bilateral lower extremities ( Below Knee to Toes) Addendum: 08/31/18 at 1751 by Enmanuel Monique RN Amended: Links added.
--- NOTE | 2018-08-31 19:01 | NUR ---
Walking rounds done and report given to oncoming shift.
[2018-08-31] MEDS: TRAZODONE HCL 50 MG TAB PO SCH (20:05)
[2018-08-31] MEDS: ATORVASTATIN 40 MG TAB PO SCH (20:05)
[2018-08-31] MEDS ORDERED: INSULIN DETEMIR 100 UNIT/ML PEN SQ SCH (21:00)
[2018-09-01] VITALS (7 sets, daily range): BP systolic 109–136; BP diastolic 54–60
[2018-09-01] MEDS: LEVOTHYROXINE SODIUM 100 MCG TAB PO SCH (05:17)
[2018-09-01] MEDS: CLINDAMYCIN PHOS 900MG/ 50ML 50 ML IV SCH ×3 (05:17→20:53)
[2018-09-01 06:03] LABS: ALBUMIN 2.5 g/dL (3.5-5.0); ALBUMIN/GLOBULIN RATIO 0.6 (0.8-2.0); CALCIUM 9.3 mg/dL (8.4-10.2); CREATININE, SERUM 1.86 mg/dL (0.72-1.25)
[2018-09-01] MEDS: INSULIN LISPRO 100 UNIT/1 ML 3ML VIAL SQ SCH ×7 (07:30→20:50)
[2018-09-01] MEDS ORDERED: POTASSIUM CHLORIDE 20MEQ/100ML 200 ML IV ONE (08:30)
[2018-09-01] MEDS: POTASSIUM CHLORIDE 20MEQ/100ML 100 ML IV SCH ×2 (08:39→10:54)
[2018-09-01] MEDS: PANTOPRAZOLE SOD 40 MG TABEC PO SCH (08:40)
[2018-09-01] MEDS: CLONIDINE HCL 0.2 MG TAB PO SCH (08:41)
[2018-09-01] MEDS: FUROSEMIDE 40 MG TAB PO SCH (08:41)
[2018-09-01] MEDS: METOPROLOL TARTRATE 50 MG TAB PO SCH ×2 (08:41→17:04)
[2018-09-01] MEDS: APIXABAN 5 MG TABLET PO SCH ×2 (08:41→17:04)
[2018-09-01] MEDS: VITAMIN A & D OINT 2 OZ TUBE TOP SCH ×3 (09:00→17:04)
[2018-09-01] MEDS: SODIUM CHLORIDE 0.9% 1000ML 1,000 ML IV SCH ×2 (10:54→23:27)
--- NOTE | 2018-09-01 11:00 | NUR ---
Dr. Giron rounding and per MD order telemetry to be discontinued.
[2018-09-01] MEDS ORDERED: MAGNESIUM SULF 1GRAM/DEXTROSE 100 ML IV ONE (13:30)
[2018-09-01] MEDS ORDERED: METHYLPREDNISOLONE SOD SUCC 40 MG/ML VIAL 1ML IV ONE (13:30)
--- NOTE | 2018-09-01 13:30 | Progress Note ---
DATE: September 01, 2018 PULMONARY MEDICINE PROGRESS NOTE SUBJECTIVE: Mr. Veliz was seen and examined at bedside. He continues to have steady progress. The ankle is much better with much less erythema and much less warmth. Patient had further questions entertained regarding sleep apnea and possible inpatient positive airway pressure use, which he acknowledges. Patient eating well. No new complications. REVIEW OF SYSTEMS: No headaches, no rash. OBJECTIVE VITAL SIGNS: Afebrile. Vital signs noted per electronic record. GENERALLY: No acute distress, alert and calm. HEENT: Normocephalic, atraumatic. NECK: Supple. Throat midline. LUNGS: Bilateral air entry, mostly clear. CARDIOVASCULAR: S1 and S2. No murmurs, rubs or gallops. ABDOMINAL: Soft, nontender. EXTREMITIES: No clubbing, no cyanosis. There is the 1+ edema to the legs. INTEGUMENT: No rash. No purpura. LABS: Potassium 3.0, creatinine 1.9. White count 14, hematocrit 38. IMPRESSION AND PLAN 1. Obesity, morbid. 2. Suspect obstructive sleep apnea, deferring inpatient treatment for right now, which is reasonable. 3. Hypokalemia, significant. 4. Dtjqm-nn-xajveir kidney failure. 5. Admit with cellulitis and possible gout of right lower extremity. Replete potassium. Follow up electrolytes. Patient agrees for outpatient polysomnogram to test for sleep apnea, which is a more controlled environment for application of this treatment. Continue to follow up swelling and ensure it improves, and he is on Lasix at this time. Will follow along closely. Job#: [id number] EV
--- NOTE | 2018-09-01 15:25 | NUR ---
Spent 45mins educating pt and about diabetic and low purine (for gout) diet. Handouts were provided. All questions have been answered. Pt appeared to be very motivated in continuing his weight loss journey through diet management.
--- NOTE | 2018-09-01 19:10 | NUR ---
REPORT RECEIVED FROM OFF GOING NURSE, PT RESTING IN BED ALERT AND ORIENTED, NO DISTRESS NOTED, DENIES NEEDS, IV INFUSING PER ORDER,CALL LIGHT IN REACH, INSTRUCTED TO CALL WITH NEEDS
--- NOTE | 2018-09-01 19:15 | NUR ---
Walking rounds done and report given to oncoming nurse. Call brewer within reach.
[2018-09-01] MEDS: ATORVASTATIN 40 MG TAB PO SCH (20:50)
[2018-09-01] MEDS: TRAZODONE HCL 50 MG TAB PO SCH (20:50)
[2018-09-01] MEDS ORDERED: INSULIN DETEMIR 100 UNIT/ML PEN SQ SCH (21:00)
[2018-09-02] VITALS (8 sets, daily range): BP systolic 117–147; BP diastolic 55–63
[2018-09-02] MEDS: CLINDAMYCIN PHOS 900MG/ 50ML 50 ML IV SCH ×3 (05:05→22:00)
[2018-09-02] MEDS: LEVOTHYROXINE SODIUM 100 MCG TAB PO SCH (05:05)
--- NOTE | 2018-09-02 05:06 | NUR ---
PT RESTING IN BED WITH EYES CLOSED, OPEN EYES UPON APPROACH, NO DISTRESS NOTED, DENIES NEEDS, IV INFUSING PER ORDER, CALL LIGHT IN REACH, INSTRUCTED TO CALL WITH NEEDS
[2018-09-02 05:09] LABS: BASOPHILS % 0.1 % (0.0-1.0); HEMATOCRIT 37.8 % (38.2-49.6); LYMPHOCYTES # (AUTO) 1.2 (1.0-3.2); LYMPHOCYTES % 8.4 % (18.0-39.1); MEAN CORPUSCULAR HEMOGLOBIN 25.9 pg (28-32); MEAN CORPUSCULAR HGB CONC 31.7 g/dL (31-35); MEAN CORPUSCULAR VOLUME 81.5 fL (81-99); MONOCYTES % 7.5 % (4.4-11.3); NEUTROPHILS # (AUTO) 11.6 (2.1-6.9); NEUTROPHILS % 83.4 % (38.7-80.0); PLATELET COUNT 343 x10e3/uL (140-360); RED BLOOD COUNT 4.64 x10e6/uL (4.3-5.7); RED CELL DISTRIBUTION WIDTH 14.6 % (11.7-14.4)
[2018-09-02 05:44] LABS: ANION GAP 13.5 mmol/L (8-16); CALCIUM 9.3 mg/dL (8.4-10.2); CREATININE, SERUM 2.06 mg/dL (0.72-1.25); MAGNESIUM 2.4 MG/DL (1.3-2.1); POTASSIUM 3.5 mmol/L (3.5-5.1)
--- NOTE | 2018-09-02 06:43 | NUR ---
WALKING ROUNDS DONE AND REPORT RECEIVED. PT IS RESTING IN BED IN NAD. POC DISCUSSED. PT INSTRUCTED TO CALL FOR ASSISTANCE NEEDED AND VERBALIZED UNDERSTANDING. CALL LOBO WITHIN REACH.
[2018-09-02] MEDS: INSULIN LISPRO 100 UNIT/1 ML 3ML VIAL SQ SCH ×7 (07:30→20:15)
[2018-09-02] MEDS: APIXABAN 5 MG TABLET PO SCH ×2 (08:21→16:36)
[2018-09-02] MEDS: PANTOPRAZOLE SOD 40 MG TABEC PO SCH (08:21)
[2018-09-02] MEDS: FUROSEMIDE 40 MG TAB PO SCH (08:21)
[2018-09-02] MEDS: CLONIDINE HCL 0.2 MG TAB PO SCH (08:21)
[2018-09-02] MEDS: ALLOPURINOL 300 MG TAB PO SCH (08:22)
[2018-09-02] MEDS: METOPROLOL TARTRATE 50 MG TAB PO SCH ×2 (08:22→16:37)
[2018-09-02] MEDS: VITAMIN A & D OINT 2 OZ TUBE TOP SCH ×2 (08:22→16:37)
[2018-09-02] MEDS ORDERED: POTASSIUM CHLORIDE 20 MEQ TAB CR PO STA (12:33)
[2018-09-02] MEDS ORDERED: METHYLPREDNISOLONE SOD SUCC 40 MG/ML VIAL 1ML IV ONE (12:45)
--- NOTE | 2018-09-02 18:59 | NUR ---
Report given to oncoming nurse. Call brewer within reach.
--- NOTE | 2018-09-02 19:00 | NUR ---
REPORT RECEIVED FROM OFF GOING NURSE, PT RESTING IN BED ALERT AND ORIENTED, VISITING WITH , NO DISTRESS NOTED, DENIES NEEDS, CALL LIGHT IN REACH, INSTRUCTED TO CALL WITH NEEDS
--- NOTE | 2018-09-02 19:54 | Progress Note ---
DATE: September 02, 2018 PULMONARY MEDICINE PROGRESS NOTE SUBJECTIVE: Mr. Veliz was seen and examined at bedside. He continues to have steady progress. Leg continues to improve and is less red. Patient otherwise eating. REVIEW OF SYSTEMS: No headaches. No bleeding. OBJECTIVE VITALS: Afebrile. Vital signs noted per electronic record. GENERAL: In no acute distress, alert and calm. HEENT: Normocephalic, atraumatic. NECK: Supple. Throat in midline. LUNGS: Bilateral air entry, limited but clear. CARDIOVASCULAR: S1 and S2. No murmurs, rubs, or gallops. ABDOMEN: Soft, nontender. EXTREMITIES: No clubbing. No cyanosis. There is trace edema to the left leg and 1+ edema to the right leg. INTEGUMENT: No rash. No purpura. LABS: Potassium 3.5, BUN 45, creatinine 2.1. White count 14, hematocrit 38, platelets 343. IMPRESSION 1. Probable obstructive sleep apnea. 2. History of pulmonary hypertension, multifactorial. 3. Recent diagnosis of atrial fibrillation and uncontrolled rate. 4. Admit for infectious cellulitis right lower extremity with and without superimposed gout component. Continue apixaban. Mobilize the patient, although we wish to offset the leg from gravity while he is at rest. Now, he is on compression to that right leg with some elastic stockings. Patient will continue antibiotics. He tells me he may be able to go home soon. Job#: [id number] ISAC
[2018-09-02] MEDS: TRAZODONE HCL 50 MG TAB PO SCH (20:14)
[2018-09-02] MEDS: ATORVASTATIN 40 MG TAB PO SCH (20:15)
--- NOTE | 2018-09-02 20:26 | NUR ---
REPORT GIVEN TO RECEIVING NURSE, PT TO BE TRANSFERRED TO ROOM 289, PT INFORMED
--- NOTE | 2018-09-02 20:44 | NUR ---
PT DEPARTING UNIT FOR TRANSFER TO ROOM 289 VIA WHEEL CHAIR, NO DISTRESS NOTED
--- NOTE | 2018-09-02 20:47 | NUR ---
patient recieved to room 289 via wheelchair from the obs unit. vss. no c/o pain noted. patient assisted to shower per pts request. patient able to shower without difficulty and pt assisted back to bed. patient instructed to call for assistance when needed.
[2018-09-02] MEDS ORDERED: INSULIN DETEMIR 100 UNIT/ML PEN SQ SCH (21:00)
[2018-09-02] MEDS ORDERED: SODIUM CHLORIDE 0.9% 250ML 250 ML ONE (22:33)
[2018-09-03] VITALS: BP 124/61
[2018-09-03 04:00] VITALS: BP 100/65
[2018-09-03] MEDS: LEVOTHYROXINE SODIUM 100 MCG TAB PO SCH (05:36)
[2018-09-03] MEDS: CLINDAMYCIN PHOS 900MG/ 50ML 50 ML IV SCH ×3 (05:36→21:30)
--- NOTE | 2018-09-03 06:00 | NUR ---
patient lying quietly in bed. no c/o pain noted throughout the night.
[2018-09-03] MEDS: INSULIN LISPRO 100 UNIT/1 ML 3ML VIAL SQ SCH ×6 (07:46→21:00)
[2018-09-03] MEDS: CLONIDINE HCL 0.2 MG TAB PO SCH (08:26)
[2018-09-03] MEDS: PANTOPRAZOLE SOD 40 MG TABEC PO SCH (08:52)
[2018-09-03] MEDS: FUROSEMIDE 40 MG TAB PO SCH (08:52)
[2018-09-03] MEDS: APIXABAN 5 MG TABLET PO SCH ×2 (08:52→17:07)
[2018-09-03] MEDS: METOPROLOL TARTRATE 50 MG TAB PO SCH ×2 (08:53→16:32)
[2018-09-03] MEDS: ALLOPURINOL 300 MG TAB PO SCH (08:53)
--- NOTE | 2018-09-03 09:22 | Progress Note ---
DATE: September 03, 2018 PULMONARY/CRITICAL CARE PROGRESS NOTE I am covering for Dr. Packer today. SUBJECTIVE: Patient has less redness and swelling in his legs. His blood sugars were mildly elevated in the 300 to 350 range. OBJECTIVE VITAL SIGNS: Patient is afebrile. The blood pressure is 100/60 and oxygen saturation is 96%. Pulse is 98. HEENT: Shows no facial swelling or erythema. His mucosa is normal. The oropharynx is normal. LYMPHATIC: Shows no submandibular, cervical, or supraclavicular adenopathy. CARDIAC: Reveals regular rate and rhythm with normal S1 and S2. There are no murmurs or rubs. LUNGS: Auscultation of lungs reveals clear breath sounds bilaterally. There is no wheezing. ABDOMEN: Soft, nontender. There is no rebound or guarding. EXTREMITIES: Shows 1 to 2+ leg edema with mild erythema. LABORATORY DATA: White blood cell count is 13.9 and hemoglobin is 12. The platelet count is 343. The blood sugars are in the 300 to 350 range. IMPRESSION 1. Obstructive sleep apnea. 2. Pulmonary hypertension. 3. Atrial fibrillation. 4. Diabetes, out of control. 5. Cellulitis. 6. Acute gouty arthritis. PLAN 1. Patient is scheduled for an outpatient polysomnography. 2. Continue to monitor and control blood sugars. 3. Continue antibiotics. 4. Monitor renal function. Job#: [id number]
[2018-09-03] MEDS: VITAMIN A & D OINT 2 OZ TUBE TOP SCH ×2 (10:50→17:03)
[2018-09-03 12:00] VITALS: BP 102/66
--- NOTE | 2018-09-03 15:30 | NUR ---
washed both lower extremities with soap and water, applied vitamin A&D cream, patient sitting up comfortably, denies any pain, no distress noted, call light in reach
[2018-09-03 16:00] VITALS: BP 106/51
--- NOTE | 2018-09-03 19:00 | NUR ---
patient recieved awake, alert, sitting up in chair. no c/o pain noted. pm assessment complete. patient instructed to call for assistance when needed.
[2018-09-03 20:00] VITALS: BP 112/46
[2018-09-03] MEDS: TRAZODONE HCL 50 MG TAB PO SCH (21:00)
[2018-09-03] MEDS: ATORVASTATIN 40 MG TAB PO SCH (21:00)
[2018-09-03] MEDS: INSULIN DETEMIR 100 UNIT/ML PEN SQ SCH (21:00)
[2018-09-04] VITALS (7 sets, daily range): BP systolic 111–136; BP diastolic 56–61
[2018-09-04] MEDS: LEVOTHYROXINE SODIUM 100 MCG TAB PO SCH (05:56)
[2018-09-04] MEDS: CLINDAMYCIN PHOS 900MG/ 50ML 50 ML IV SCH ×3 (05:56→21:51)
[2018-09-04] MEDS: INSULIN LISPRO 100 UNIT/1 ML 3ML VIAL SQ SCH ×7 (07:54→20:45)
[2018-09-04] MEDS: FUROSEMIDE 40 MG TAB PO SCH (08:06)
[2018-09-04] MEDS: CLONIDINE HCL 0.2 MG TAB PO SCH (08:06)
[2018-09-04] MEDS: APIXABAN 5 MG TABLET PO SCH ×2 (08:06→17:13)
[2018-09-04] MEDS: METOPROLOL TARTRATE 50 MG TAB PO SCH ×2 (08:06→17:13)
[2018-09-04] MEDS: PANTOPRAZOLE SOD 40 MG TABEC PO SCH (08:06)
[2018-09-04] MEDS: ALLOPURINOL 300 MG TAB PO SCH (08:06)
[2018-09-04] MEDS: VITAMIN A & D OINT 2 OZ TUBE TOP SCH ×2 (11:05→17:00)
--- NOTE | 2018-09-04 18:05 | NUR ---
patient resting in bed, denies any pain, not in any distress
--- NOTE | 2018-09-04 19:00 | NUR ---
patient recieved awake, alert, lying quietly in bed. vss. no c/o pain noted. pm assessment complete. patient instructed to call for assistance when needed.
[2018-09-04] MEDS: ATORVASTATIN 40 MG TAB PO SCH (20:45)
[2018-09-04] MEDS: TRAZODONE HCL 50 MG TAB PO SCH (20:45)
[2018-09-04] MEDS: INSULIN DETEMIR 100 UNIT/ML PEN SQ SCH (20:48)
[2018-09-05] VITALS: BP 119/56
[2018-09-05 04:00] VITALS: BP 131/73
[2018-09-05] MEDS: LEVOTHYROXINE SODIUM 100 MCG TAB PO SCH (05:16)
[2018-09-05] MEDS: CLINDAMYCIN PHOS 900MG/ 50ML 50 ML IV SCH ×2 (05:16→13:47)
[2018-09-05] MEDS: INSULIN LISPRO 100 UNIT/1 ML 3ML VIAL SQ SCH ×4 (07:30→11:30)
[2018-09-05 07:43] VITALS: BP 139/65
[2018-09-05] MEDS: PANTOPRAZOLE SOD 40 MG TABEC PO SCH (09:02)
[2018-09-05] MEDS: VITAMIN A & D OINT 2 OZ TUBE TOP SCH (09:03)
[2018-09-05] MEDS: METOPROLOL TARTRATE 50 MG TAB PO SCH (09:03)
[2018-09-05] MEDS: FUROSEMIDE 40 MG TAB PO SCH (09:03)
[2018-09-05] MEDS: APIXABAN 5 MG TABLET PO SCH (09:03)
[2018-09-05] MEDS: ALLOPURINOL 300 MG TAB PO SCH (09:03)
[2018-09-05] MEDS: CLONIDINE HCL 0.2 MG TAB PO SCH (09:03)
--- NOTE | 2018-09-05 09:50 | Discharge Summary ---
Mr. Veliz is a 77-year-old male who presented with cellulitis of the right lower extremity. Cultures were reported essentially negative. Since he has chronic renal failure, clindamycin was started by infectious disease. Potassium supplement was given. It brought the potassium up to 2.7 the following day. The patient had a potassium of 3 with more supplement on September 01, 2018. The potassium came up to 3.5. BUN and creatinine remained at 45 and 2 respectively. The patient's uric acid was high. Subsequently, allopurinol was started at 300 mg p.o. daily. The patient's uric acid has dropped from 13.8 to 9.9 today. He is asymptomatic. There is no cellulitis. Subsequently, being discharged at the present time on: 1. Trazodone 50 mg at night. 2. Insulin as per Dr. Solis. 3. Clonidine 0.2 mg a day. 4. Synthroid 100 mcg a day. 5. Apixaban 5 mg p.o. b.i.d. 6. Lasix 80 mg a day. 7. Pravastatin 40 mg a day. 8. Metoprolol 50 mg p.o. b.i.d. 9. Allopurinol 300 mg a day. 10. Insulin Detemir 33 units at night. 1. Insulin Lispro 14 units a.c. The patient will be seen in my office in 1 week. Job#: [id number] [place]
--- NOTE | 2018-09-05 09:57 | History and Physical ---
Mr. Veliz is a 77-year-old male who presented with cellulitis of the right ankle, excruciating pain. Subsequently, seen and admitted for further evaluation and treatment. History of , history of hypertension, history of morbid obesity, history of pulmonary hypertension, history of anemia of chronic disease, history of sleep apnea. SOCIAL HISTORY: Noncontributory. FAMILY HISTORY: Noncontributory. ALLERGIES: REPORTED NONE. MEDICATIONS: At this time: 1. Clindamycin. 2. Sodium chloride. 3. Colchicine. 4. Regular insulin. 5. Ondansetron. REVIEW OF SYSTEMS HEENT: Normal. CARDIAC: History of atrial fibrillation. History of hypertension. RESPIRATORY: History of pulmonary hypertension. GI: Normal. : Chronic renal failure. MUSCULOSKELETAL: Normal. SKIN AND BREASTS: Normal. NEUROENDOCRINE: History of diabetes mellitus, insulin-dependent. PHYSICAL EXAMINATION GENERAL: Morbidly obese male with no palpable adenopathy. HEART: Within normal limits. LUNGS: Clear. ABDOMEN: Obese. RECTAL: Deferred. HAY BUCKLER: Essentially normal. EXTREMITIES: Reveals severe cellulitis involving the right ankle. LABS: Shows a sodium of 136, potassium 2.7, chloride 98, CO2 24, BUN 50, creatinine 2.1, glucose 252. White count of 13,700 and platelets 369,000. Hemoglobin of 12.1 and hematocrit 37.6. IMPRESSION 1. Cellulitis of right ankle. 2. Chronic renal failure. 3. Hypokalemia. 4. Morbid obesity. 5. Anemia of chronic disease. 6. Sleep apnea. 7. Hypertension. 8. Pulmonary hypertension. 9. Possible gout. 10. Atrial fibrillation. PLAN: Treat him aggressively with IV antibiotics. Uric acid level. Potassium supplement. Consult with infectious disease, pulmonology and nephrology. Job#: [id number] [place]
[2018-09-05 11:38] VITALS: BP 134/62
--- NOTE | 2018-09-05 13:25 | Progress Note ---
DATE: September 05, 2018 PULMONARY MEDICINE PROGRESS NOTE SUBJECTIVE: Mr. Veliz was seen and examined at bedside. He continues to have slow progress. He still has edema to the legs. He is feeling better. His legs are more often in vertical position. Patient continues to do fine with less redness to the ankle. REVIEW OF SYSTEMS: No headaches. OBJECTIVE VITALS: Afebrile. Vital signs noted per electronic record. GENERAL: In no acute distress. HEENT: Normocephalic. NECK: Supple. LUNGS: Bilateral air entry. CARDIOVASCULAR: S1 and S2. ABDOMEN: Soft. EXTREMITIES: No clubbing. INTEGUMENT: No rash. No exfoliation of the cellulitis site was noted. IMPRESSION AND PLAN 1. Admit for cellulitis of right ankle and lower extremity, improved. 2. Pulmonary hypertension, suspect secondary. 3. High probability of obstructive sleep apnea. 4. Leg edema, bilateral. Patient for possible discharge today. Outpatient sleep study recommended. We have done initial paperwork to get this done. Patient furthermore needs to continue to keep edema off his legs if possible by offloading his legs and by intermittent diuretics if needed. Job#: [id number] RAUDEL
[2018-09-05] MEDS ORDERED: ALLOPURINOL300 MG PO (14:45)
[2018-09-05] MEDS ORDERED: HUMALOG MI100 UNITS/ SQ ×2 (14:47)
--- NOTE | 2018-09-05 15:30 | NUR ---
PATIENT DISCHARGE HOME- PATIENT OFF OF THE UNIT AT 1509 PER WHEELCHAIR ACCOMPANIED BY RN TO THE FRONT LOBBY. PATIENT IS IN STABLE CONDITION WITH NO S/S OF RESPIRATORY DISTRESS. NO PAIN VOICED. IV REMOVED AT 1501 WITH TIP INTACT. DISCHARGE TEACHING, INSTRUCTIONS, AND MEDICATIONS GIVEN TO THE PATIENT. ALL PERSONAL ITEMS TAKEN WITH THE PATIENT.
== END 2018-09-05 15:09 | disposition home or self-care (01) | DRG 603 ==
LOC: ER 13:05 → ERHOLD 18:07 → IMCU 20:07 → OBSVTOIN 09-01 08:35 → MED/SURG3 09-02 20:32
PROVIDERS: ADMIT Internal Medicine Medical Oncology; ATTEND Internal Medicine Medical Oncology
DX: L03.115 Cellulitis of right lower limb (principal); Z68.42 Body mass index [BMI] 45.0-49.9, adult; N17.9 Acute kidney failure, unspecified; E66.2 Morbid (severe) obesity with alveolar hypoventilation; I13.0 Hypertensive heart and chronic kidney disease with heart failure and stage 1 through stage 4 chronic kidney disease, or unspecified chronic kidney disease; M10.9 Gout, unspecified; E87.6 Hypokalemia; D63.8 Anemia in other chronic diseases classified elsewhere; I48.2 Chronic atrial fibrillation; Z79.01 Long term (current) use of anticoagulants; I27.20 Pulmonary hypertension, unspecified; R60.0 Localized edema; E11.65 Type 2 diabetes mellitus with hyperglycemia; E11.22 Type 2 diabetes mellitus with diabetic chronic kidney disease; E03.9 Hypothyroidism, unspecified; E11.319 Type 2 diabetes mellitus with unspecified diabetic retinopathy without macular edema; E11.42 Type 2 diabetes mellitus with diabetic polyneuropathy; E11.51 Type 2 diabetes mellitus with diabetic peripheral angiopathy without gangrene; E11.21 Type 2 diabetes mellitus with diabetic nephropathy; K80.20 Calculus of gallbladder without cholecystitis without obstruction; N18.3 Chronic kidney disease, stage 3 (moderate); Z79.4 Long term (current) use of insulin; I50.812 Chronic right heart failure; G47.33 Obstructive sleep apnea (adult) (pediatric)
CPT/HCPCS: 36415; 80048; 80053; 82570; 82948; 83036; 83735; 84156; 84439; 84443; 84550; 85025; 85379; 85610; 85730; 99284; G0378; J2270; J2920; J3475; J3480; J7030; J7050